=== PATIENT | female | born 1990 | race African-American/Black ===

== ENCOUNTER 2017-05-15 18:50 | Emergency (ER) | payer OTHER ==
[~2017-05-15] VITALS: Ht 160 cm; Wt 77.1 kg
[2017-05-15 19:12] VITALS: Ht 160 cm; Wt 77.1 kg
[2017-05-15 22:51] VITALS: BP 129/74
== END 2017-05-15 22:51 | disposition home or self-care (01) ==
LOC: ED 18:50
DX: J11.1 Influenza due to unidentified influenza virus with other respiratory manifestations (principal); R11.2 Nausea with vomiting, unspecified; J98.01 Acute bronchospasm
CPT/HCPCS: J1885; J7030; Q0162